=== PATIENT | female | born 1980 | race Caucasian/White ===

== ENCOUNTER 2021-02-06 09:36 | Outpatient (CLI) | payer OTHER, SELFPAY ==
--- NOTE | ~2021-02-06 | MM_ITS ---
EXAMINATION: MM screening lorenzo BI w maria de jesus HISTORY: Screening mammogram TECHNIQUE: Craniocaudal and mediolateral oblique 3-D tomosynthesis images were obtained and synthetic 2-D images were generated. CAD analysis was submitted and interpreted. COMPARISON: None, baseline BREAST PARENCHYMAL COMPOSITION: The breasts are heterogeneously dense, which may obscure small masses . FINDINGS: RIGHT BREAST: There is possible architectural distortion in the middle third of the central breast. I n addition, an asymmetry is seen in the upper inner breast 6 cm from the nipple on the mediolateral o blique view. LEFT BREAST: An asymmetry is present in the posterior third of the slightly inner breast on the crani ocaudal view. IMPRESSION: 1. Bilateral breast findings as above. 2. Additional mammographic views and possible breast ultrasound are recommended to evaluate for malig kevin and establish a baseline given that this is the first mammographic examination. BI-RADS Category 0: Incomplete: Needs additional imaging evaluation. Reviewed, dictated and finalized at location A. RINTENDENT MENAGERIE IMPRESSION: 1. Bilateral breast findings as above. 2. Additional mammographic views and possible breast ultrasound are recommended to evaluate for malignancy and establish a baseline given that this is the fir st mammographic examination. BI-RADS Category 0: Incomplete: Needs additional imaging evaluation.
== END 2021-02-06 09:37 | disposition home or self-care (01) ==
PROVIDERS: PCP Family Medicine; Visit Provider Physician Assistant
DX: Z12.31 Encounter for screening mammogram for malignant neoplasm of breast (principal); R92.8 Other abnormal and inconclusive findings on diagnostic imaging of breast
CPT/HCPCS: 77063; 77067

== ENCOUNTER 2021-02-26 11:15 | Outpatient (CLI) | payer OTHER, SELFPAY ==
--- NOTE | ~2021-02-26 | MMUS_ITS ---
EXAMINATION: MM diagnostic lorenzo BI w maria de jesus, US breast BI limited HISTORY: Asymmetry and possible architectural distortion of the right breast and asymmetry of the lef t breast on baseline screening mammogram TECHNIQUE: Additional 3-D tomosynthesis images of the breasts were performed and synthetic 2-D images were generated. CAD analysis was submitted and interpreted. High resolution limited bilateral breast ultrasound was performed. COMPARISON: 02/06/2021 FINDINGS: MAMMOGRAPHIC FINDINGS: Left breast: No persistent asymmetry is identified with spot compression of the left breast. There is no suspicious mass, calcification or architectural distortion. Right breast: No definite architectural distortion or persistent asymmetry are identified with additi onal views of the right breast. ULTRASOUND: There is no evidence of focal abnormal solid or cystic mass in the vicinity of the mammographic findi ngs in question in either breast. IMPRESSION: 1. No mammographic or sonographic evidence of malignancy. 2. Recommend routine screening mammography in one year. BI-RADS Category 1: Negative Reviewed, dictated and finalized at location A. CONDITIONING TECHNICIAN IMPRESSION: 1. No mammographic or sonographic evidence of malignancy. 2. Recommend routine screening mammography in one year. BI-RADS Category 1: Negative
== END 2021-02-26 11:16 | disposition home or self-care (01) ==
LOC: ANHIMG 11:16
PROVIDERS: PCP Family Medicine; Visit Provider Family Medicine
DX: N63.0 Unspecified lump in unspecified breast (principal)
CPT/HCPCS: 76642; 77062; 77066; G0279

== ENCOUNTER 2022-05-06 09:36 | Outpatient (CLI) | payer OTHER, SELFPAY ==
--- NOTE | ~2022-05-06 | MM_ITS ---
EXAMINATION: MM screening lorenzo BI w maria de jesus HISTORY: Screening mammogram TECHNIQUE: Craniocaudal and mediolateral oblique 3-D tomosynthesis images were obtained and synthetic 2-D images were generated. CAD analysis was submitted and interpreted. COMPARISON: 02/26/2021 bilateral diagnostic mammogram and bilateral Limited breast ultrasound 02/06/2021 bilateral screening mammogram BREAST PARENCHYMAL COMPOSITION: There are scattered areas of fibroglandular density. FINDINGS: There is an approximately 3 mm possible circumscribed mass in the posterior lower outer lef t breast on CC view (craniocaudal Tomosynthesis image 30/88). Diagnostic left mammogram and left stacey st ultrasound examination are recommended. Otherwise there is no evidence of suspicious mass, calcification, or architectural distortion to sugg est malignancy in either breast. There has been no other suspicious interval change. IMPRESSION: 1. No mammographic evidence of malignancy. 2. Recommend routine screening mammography in one year. BI-RADS Category 0: Incomplete: Needs additional imaging evaluation. Reviewed, dictated and finalized at location A. RNS PROCESSOR
== END 2022-05-06 09:37 | disposition home or self-care (01) ==
PROVIDERS: PCP Family Medicine; Visit Provider Physician Assistant
DX: Z12.31 Encounter for screening mammogram for malignant neoplasm of breast (principal); R92.8 Other abnormal and inconclusive findings on diagnostic imaging of breast
CPT/HCPCS: 77063; 77067

== ENCOUNTER 2022-08-08 14:19 | Outpatient (CLI) | payer OTHER, SELFPAY ==
--- NOTE | ~2022-08-08 | MMUS_ITS ---
EXAMINATION: MM diagnostic lorenzo LT w maria de jesus, US breast LT limited HISTORY: Possible left breast mass on screening mammogram TECHNIQUE: Additional 3-D tomosynthesis images of the left breast were performed and synthetic 2-D im ages were generated. CAD analysis was submitted and interpreted. High resolution limited left breast ultrasound was performed. COMPARISON: 05/06/2022, 02/26/2021, 02/06/2021 BREAST PARENCHYMAL COMPOSITION: The breasts are heterogeneously dense, which may obscure small masses . FINDINGS: MAMMOGRAPHIC FINDINGS: There is a return to baseline fibroglandular appearance with spot compression of the left breast in t he area questioned on screening mammogram. ULTRASOUND: There is no evidence of focal abnormal solid or cystic mass in the vicinity of the mammographic findi ng in question. There is a 1.9 x 0.9 cm oval, circumscribed, parallel, mildly hyperechoic mass with p osterior acoustic enhancement and no internal vascularity at the 4:00 location, 5 cm from the nipple. IMPRESSION: 1. Probably benign sonographically detected left breast mass. 2. Recommend 6 month follow-up target left breast ultrasound. BI-RADS category 3, probably benign findings. Reviewed, dictated and finalized at location A. IMPRESSION: 1. Probably benign sonographically detected left breast mass. 2. Recommend 6 month follow-up target left breast ultrasound. BI-RADS category 3, probably benign findings.
== END 2022-08-08 14:20 | disposition home or self-care (01) ==
PROVIDERS: PCP Family Medicine; Visit Provider Physician Assistant
DX: N63.0 Unspecified lump in unspecified breast (principal)
CPT/HCPCS: 76642; 77061; 77065; G0279

== ENCOUNTER 2022-09-09 15:16 | Outpatient (CLI) | payer OTHER, SELFPAY ==
[2022-09-09 15:55] LABS: CRP < 0.5 mg/dL (<1.0)
[2022-09-09 16:08] LABS: Erythrocyte Sedimentation Rate 10 mm/hr (0-20)
[2022-09-09 16:38] LABS: Thyroid Stimulating Hormone Reflex 0.778 uIU/mL (0.465-4.68)
[2022-09-12 19:42] LABS: Immunoglobulin A 103 mg/dL (47-310); TTG IGA AB <1.0 U/mL (<15.0)
[2022-09-15 19:12] LABS: Calprotectin, Stool 49 mcg/g
== END 2022-09-09 15:17 | disposition home or self-care (01) ==
LOC: ANHLAB 15:17
PROVIDERS: PCP Family Medicine; Visit Provider Nurse Practitioner
DX: K52.9 Noninfective gastroenteritis and colitis, unspecified (principal); R19.4 Change in bowel habit
CPT/HCPCS: 36415; 82784; 83993; 84443; 85652; 86140; 86364; 87045; 87077; 87186; 87269; 87427

== ENCOUNTER 2022-09-25 14:19 | Outpatient (CLI) | payer OTHER, SELFPAY ==
--- NOTE | ~2022-09-25 | US_ITS ---
EXAMINATION: US venous doppler [facility] DATE: 09/25/2022 15:00 INDICATION: Left lower limb swelling TECHNIQUE: Grayscale ultrasound images without and with compression and Doppler ultrasound images of the left lower extremity veins were obtained. COMPARISON: None. FINDINGS: The visualized portions of left common femoral vein, profunda (deep) femoral vein, femoral vein, popl iteal vein, peroneal veins, posterior tibial veins, gastrocnemius vein and greater saphenous vein out flow are patent. IMPRESSION: 1. No deep venous thrombosis in the left lower limb. Reviewed, dictated and finalized at location A.
== END 2022-09-25 14:20 | disposition home or self-care (01) ==
PROVIDERS: PCP Family Medicine; Visit Provider Physician Assistant
DX: R22.42 Localized swelling, mass and lump, left lower limb (principal)
CPT/HCPCS: 93971

== ENCOUNTER 2022-09-27 11:50 | Outpatient (CLI) | payer OTHER, SELFPAY ==
--- NOTE | ~2022-09-27 | XR_ITS ---
Left Knee Technique: AP, lateral, and oblique views were obtained. Clinical History: Pain and swelling Findings: No fracture or dislocation is seen. Osseous alignment is anatomic. Joint spaces are preserv ed without degenerative or erosive change. Soft tissues are unremarkable. No joint effusion is seen. Impression: Unremarkable left knee radiographs. Reviewed, dictated and finalized at location . Impression: Unremarkable left knee radiographs.
== END 2022-09-27 11:51 | disposition home or self-care (01) ==
PROVIDERS: PCP Family Medicine; Visit Provider Physician Assistant
DX: M25.562 Pain in left knee (principal)
CPT/HCPCS: 73562

== ENCOUNTER 2022-09-30 03:43 | Day surgery (SDC) | payer OTHER, SELFPAY ==
[2022-09-23 09:14] VITALS: BMI 34.9
[2022-09-30 08:22] VITALS: BP 115/81; PULSE 75; RESP 20; TEMP 36.3; O2SAT 99; BMI 34.4
[2022-09-30] MEDS: LACTATED RINGERS 1,000 ML 150 ML IV CONT (08:31)
--- NOTE | 2022-09-30 08:47 | WPDANESEPPF ---
Anes - Initial Pre Proc Eval Procedure: Operation Date: 09/30/22 09:30 Proposed Procedures p Colonoscopy - Luke Diggs MD Date/Time: 09/30/22 08:47 Surgeon: Luke Diggs MD Pre Op Diagnosis: change in bowel habits Patient Data Age: 42 Gender: F Height: 1.57 m Weight: 85.6 kg Last Vital Signs Temp 97.4 F L 09/30/22 08:22 Pulse 75 09/30/22 08:22 Resp 20 09/30/22 08:22 BP 115/81 09/30/22 08:22 Pulse Ox 99 09/30/22 08:22 O2 Del Method Room Air 09/30/22 08:22 Allergies Allergy/AdvReac Type Severity Reaction Status Date / Time No Known Allergies Allergy Unverified 09/25/22 13:27 Home Medications Medication Instructions Recorded Confirmed Type amitriptyline 25 mg tablet 25 mg PO DAILY 08/26/22 09/23/22 History atorvastatin 20 mg tablet 20 mg PO DAILY 08/26/22 09/23/22 History bupropion HCl 300 mg 24 hr tablet, 300 mg PO DAILY 08/26/22 09/23/22 History extended release calcium carbonate 600 mg-vitamin 1 tablet PO DAILY 08/26/22 09/23/22 History D3 10 mcg (400 unit) tablet escitalopram oxalate 10 mg tablet 10 mg PO DAILY 08/26/22 09/23/22 History lamotrigine 100 mg tablet,extended 100 mg PO DAILY 08/26/22 09/23/22 History release 24 hr multivitamin with folic acid 400 1 tablet PO DAILY 08/26/22 09/23/22 History mcg tablet (Tab-A-Odalis) rizatriptan 10 mg tablet See Rx Instructions PO .COMPLEX 08/26/22 09/23/22 Rx #10 tabs colestipol 1 gram tablet 1 g PO BID #60 tabs 09/09/22 09/23/22 Rx omega 4-jxy-vck-fish oil 300 1 cap PO DAILY #90 caps 09/20/22 09/23/22 Rx mg-1,000 mg capsule (Fish Oil) Patient hx anesthesia problems: none Family hx anesthesia problems: none Results Review: All pre-operative results and documents have been reviewed as part of the pre-operative evaluation. [facility] Past Medical History Medical History (Updated 09/25/22 @ 15:36 by JOHNNY Baker) Anxiety Bipolar disorder Chronic diarrhea Depression Endometriosis Hyperlipidemia Migraine Surgical History Surgical History History of section 2000 History of total abdominal hysterectomy 2018 History of tubal ligation 2005 Family History Family History (Updated 09/25/22 @ 15:37 by Samara Brewster PAC) Grandparent Cerebrovascular accident Social History Social History Smoking packs per day: 0.5 Smoking cigarettes per day: 10.0 Years smoked: 25 Smoking pack-years: 12.50 Smoking status: Current some day smoker Tobacco type: cigarettes Smoking end date: 07/25/21 Alcohol intake: never Substance use: never Substance use type: does not use Lack of Transportation: No Lack of Food: Never True Current Housing: I Have Housing Concerned About Future Housing: No Difficulty Paying Gas/Electric Bills: No Difficulty Paying for Meds: No Currently Unemployed: No Education: Associate Degree Difficulty w/ Childcare or Family Care: No Living arrangements: with friend(s) Occupation/Education: occupation Gender identity (if verbalized by the patient): Female Sexual Orientation (if Verbalized by the Patient): Straight or Heterosexual Spiritual care concerns: No Anes - Eval Final PreProcedure Day of Procedure 09/30/22 08:47 Patient weight: obese Heart: regular rate and rhythm Lungs: clear to auscultation Airway: Mallampati scale class II Neurological: alert and oriented Last oral intake: >/= 8 hours ASA classification: III Emergent: no Anesthetic plan: proceed Anesthesia type and monitoring: general GIVS and standard monitoring Results Review: All pre-operative results and documents have been reviewed as part of the pre-operative evaluation. Informed Consent: The patient's anesthetic plan and its attendant risks and benefits were discussed with the patient/family/POA.
--- NOTE | 2022-09-30 09:00 | WPDHPUPDATE1 ---
History and Physical Update Update Date/Time: 09/30/22 09:00 History and Physical has been reviewed, including an updated exam of the patient. There are NO changes in the patient's condition. Risks, benefits, and alternatives have been discussed and questions answered. Patient agrees to proceed with procedure.
[2022-09-30 09:25] VITALS: BP 128/84; PULSE 74; RESP 21; O2SAT 94
[2022-09-30 09:35] VITALS: BP 136/85; PULSE 72; RESP 22; O2SAT 94
[2022-09-30 09:45] VITALS: BP 136/89; PULSE 72; RESP 20; O2SAT 96
== END 2022-09-30 09:54 | disposition home or self-care (01) ==
PROVIDERS: PCP Family Medicine; Visit Provider Internal Medicine Gastroenterology
PROC: 0DJD8ZZ Inspection of Lower Intestinal Tract, Via Natural or Artificial Opening Endoscopic (ICD-10-PCS; CPT 45378; principal; 2022-09-30 09:30)
DX: Z12.11 Encounter for screening for malignant neoplasm of colon (principal); D12.0 Benign neoplasm of cecum; Z87.891 Personal history of nicotine dependence; R19.7 Diarrhea, unspecified; F31.9 Bipolar disorder, unspecified; F41.9 Anxiety disorder, unspecified; E78.5 Hyperlipidemia, unspecified
CPT/HCPCS: 45385; 45380; 45381; 88305; J2704; J7120

== ENCOUNTER 2022-12-30 09:38 | Outpatient (CLI) | payer OTHER, SELFPAY ==
[2023-01-07 18:22] LABS: Pancreatic Elastase, Stool 285 mcg/g
== END 2022-12-30 09:39 | disposition home or self-care (01) ==
LOC: ANHLAB 09:39
PROVIDERS: PCP Family Medicine; Visit Provider Nurse Practitioner Family
DX: K52.9 Noninfective gastroenteritis and colitis, unspecified (principal)
CPT/HCPCS: 82653; 87045; 87427; 87449